=== PATIENT | male | born 1955 | race Caucasian/White ===

== ENCOUNTER → 2020-12-23 | Outpatient (CLI) | payer BC ==
[~2020-12-23] MED LIST: CO-ENZYME Q-1010 MG PO; ROSUVASTATIN CA10 MG PO; VITAMIN D325 MC5 PO
[2020-12-23 09:27] LABS: URINE BILIRUBIN NEGATIVE (Negative); URINE BLOOD NEGATIVE (Negative); URINE CLARITY CLEAR; URINE COLOR YELLOW; URINE GLUCOSE-RANDOM* NEGATIVE (Negative); URINE KETONES NEGATIVE (Negative); URINE LEUKOCYTES-REFLEX NEGATIVE (Negative); URINE NITRITE-REFLEX NEGATIVE (Negative); URINE PROTEIN (DIPSTICK) NEGATIVE (Negative); URINE SPECIFIC GRAVITY <= 1.005 (1.005-1.035); URINE UROBILINOGEN 0.2 E.U./dl (0.2-1.0)
[2020-12-23 09:36] LABS: HEMATOCRIT 36.5 % (42.0-52.0); HEMOGLOBIN 11.6 gm/dL (14.0-18.0); MCH 24.2 pg (26.0-34.0); MCHC 31.8 g/dL (28.0-37.0); MCV 75.9 fL (80.0-100.0); RBC 4.81 mil/uL (4.50-6.00); RDW 16.5 % (10.5-14.5)
[2020-12-23 09:43] LABS: CALCIUM 8.7 mg/dL (8.5-10.1); POTASSIUM 4.6 mmol/L (3.5-5.1)
--- NOTE | 2020-12-23 11:27 | EKG ---
[address] [address] ELECTROCARDIOGRAM REPORT Name: SVITLANA ALVARENGA Room #: MORRIS Friedman#: [id number] Admission: 12/23/20 Attend Phys: Terrell Denis MD Discharge: Date of : 55 Report #: [id number] 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
== END ==
LOC: PAC 08:43
PROVIDERS: ATTEND Orthopaedic Surgery
DX: Z01.818 Encounter for other preprocedural examination (principal); M16.11 Unilateral primary osteoarthritis, right hip

== ENCOUNTER 2020-12-30 06:42 | Observation (INO) | payer BC ==
[~2020-12-30] VITALS: Ht 170.2 cm; Wt 98.4 kg
[2020-12-30 08:13] VITALS: BP 156/72
[2020-12-30 15:50] VITALS: BP 137/75
--- NOTE | 2020-12-30 17:45 | NUR ---
PT ARRIVED TO FLOOR FROM RR IN STABLE CONDITION AT 1433. 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 NO NEW ORDER NOTED.PT C/O RT HIP PAIN RATED 4/10. NORCO 1 TAB GIVEN. PT IN BED EATING DINNER. WILL CONTINUE TO MONITOR.
[2020-12-30 20:03] VITALS: BP 136/69
--- NOTE | 2020-12-31 03:28 | NUR ---
ASSESSED AT START OF SHIFT. PT RESTING IN BED. IV INTACT AND FLUIDS INFUSING. PO PAIN MED GIVEN FOR RIGHT HIP PAIN. URINAL AT BEDSIDE AND PT VOIDS APPROPRAITELY. NO FURTHER SIGNS OF DISCOMOFORT. WILL CONT WITH POC TILL EOS. FERNANDO DRESSING, ICE PACK AND HEMOVAC IN PLACE.
[2020-12-31 05:53] LABS: ABSOLUTE NEUTROPHILS 6.8 thou/uL (1.4-8.2); BASOPHILS 0.1 % (0.0-2.0); HEMATOCRIT 28.6 % (42.0-52.0); HEMOGLOBIN 9.2 gm/dL (14.0-18.0); MCH 24.8 pg (26.0-34.0); MCV 77.5 fL (80.0-100.0); MONOCYTES 10.1 % (1.0-8.0); PLATELET COUNT 204 thou/uL (150-400); POLYS 74.8 % (36.0-66.0); RDW 16.9 % (10.5-14.5); WBC 9.1 thou/uL (4.0-11.0)
[2020-12-31 06:11] LABS: CALCIUM 7.7 mg/dL (8.5-10.1); MAGNESIUM 1.9 mg/dL (1.8-2.4); POTASSIUM 4.2 mmol/L (3.5-5.1)
--- NOTE | 2020-12-31 07:48 | O ---
[facility] [place] [address] OPERATIVE REPORT Name: SVITLANA ALVARENGA Room #: 436-P [facility] Elder#: [id number] Admission: 12/30/20 Attend Phys: Terrell Denis MD Discharge: Date of : 55 Report #: [id number] THIS REPORT FOR: cc: RIC FARLEY MD Physician not on staff Terrell Denis MD ~ DATE OF SERVICE: 12/30/2020 PREOPERATIVE DIAGNOSIS: End-stage degenerative arthritis, right hip. POSTOPERATIVE DIAGNOSIS: End-stage degenerative arthritis, right hip. PROCEDURE: Right total hip arthroplasty. SURGEON: Terrell Denis MD INDICATIONS: This healthy, active 65-year-old gentleman complains of progressive right hip pain. Clinical exam and x-rays confirm rather significant degenerative arthritis with significant spurring. He demonstrates slight flexion contracture and limited rotation with crepitus and pain. We discussed treatment options and elected to go ahead with total hip replacement. DESCRIPTION OF PROCEDURE: The patient was taken to the operating room where he was placed under general anesthesia. Prophylactic intravenous antibiotics were administered. He was turned to the left lateral decubitus position. The right hip, thigh and leg were meticulously prepped and draped. A slightly curving posterolateral skin incision was made. This was carried through fascia and gluteus to expose the posterior aspect of the hip joint. The short external rotators and caps were taken down and preserved and tagged with several #1 FiberWire sutures. The hip was dislocated posteriorly and marked. Degenerative change on the femoral head and acetabulum was noted. A femoral neck osteotomy was performed. The canal was prepared using reamers and hand broaches. The Quevedo and Nephew hip system was utilized. The hip seemed best suited for a size 14 Synergy stem. The trial stem was removed and attention directed to the acetabulum. The acetabulum was sequentially reamed, gradually advancing to a 56 mm reamer. A Quevedo and Nephew size 56, 3-hole StikTite acetabular shell was selected. This was impacted into his anatomic acetabulum, placing this in about 45 degrees off of vertical and about 20 degrees of anteversion. It seated nicely and appeared to be secure. In addition, three cancellous screws were placed through the apical 3 anchor holes. Each had good purchase and seemed to add stability. A 40 mm diameter polyethylene liner was then inserted placing the 20-degree elevated rim at about the 10 o'clock posterior position. This seated nicely and appeared to be secure. A trial reduction was then performed and the hip was best suited for a size 14 femoral stem with a high offset neck angle and a +4 mm neck length. This resulted in satisfactory alignment, range of motion, stability, and leg length. The trial stem was removed and the [facility] [address] [place] [address] OPERATIVE REPORT Name: SVITLANA ALVARENGA Room #: 436-P [facility] Anahy Friedman#: [id number] Admission: 12/30/20 Attend Phys: Terrell Denis MD Discharge: Date of : 55 Report #: [id number] permanent Quevedo and Nephew Synergy size 14 high offset femoral component was then impacted in place. Positioning this in about 20 degrees of anteversion. It seated nicely and appeared to be secure. A femoral head was then selected using the Oxinium 40 mm diameter with a +4 mm neck length sleeve. This was impacted on to the Mares taper. It seated nicely and appeared to be secure. The hip was reduced. Alignment, range of motion, stability and leg length were assessed and felt to be satisfactory. The wound was copiously irrigated. Good hemostasis was established. The capsule and short external rotators were repaired back to bone. A single Hemovac was left in the wound exiting through a separate stab incision. The fascia was then closed with multiple #1 Vicryl sutures. The subcutaneous tissues were closed with 0 Monocryl. The skin was closed with skin sharita. Sterile dressing was applied. The patient was awakened and returned to recovery room in good condition. <ELECTRONICALLY SIGNED> By: Terrell Denis MD 12/31/20 0748 1047 1111 Terrell Denis MD /sean
[2020-12-31 07:50] VITALS: BP 117/66
--- NOTE | 2020-12-31 09:15 | NUR ---
Chart review, Total Hip replacement. Don a & o x 4, pleasant. able to make his needs know. Therapy will see him today, will need fww. referral to provider plus, was ok per mal. He lives at home with his . from the garage there is 1/[address] into home with hand rails. Total of 14 steps up to bedrooms and down to the basement. No DME prior to. Independent prior to hospital. Manage his own medication, drives vehicle. 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 PCP Quentin Warren. No hh or rehab in the past. Has outpt therapy that he wants to do at [facility] alanna/Lorena # [phone]. will cont following as needed for dc needs. DCP: FWW, home [facility].
--- NOTE | 2020-12-31 16:11 | EKG ---
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
[2020-12-31 19:11] VITALS: BP 115/66
--- NOTE | 2021-01-01 02:02 | NUR ---
ASSESSED AT START OF SHIFT 1900. PT SITTING UP IN CHAIR. EVENING MEDS GIVEN AND PT RICHARD IT WELL. UP WITH ASSIST TO THE BED. URINAL BY BEDSIDE. HYDROCODONE GIVEN FOR PAIN. PER REPORT PT FELT DIZZY DURING THE DAY AND DIDN'T RICHARD THERAPY WELL. WILL CONT TO MONITOR.
[2021-01-01 04:07] VITALS: BP 132/71
[2021-01-01 06:46] LABS: MCH 24.9 pg (26.0-34.0); MCHC 32.1 g/dL (28.0-37.0); MCV 77.4 fL (80.0-100.0); RBC 3.62 mil/uL (4.50-6.00); RDW 16.9 % (10.5-14.5); WBC 7.3 thou/uL (4.0-11.0)
[2021-01-01 07:36] VITALS: BP 128/80
--- NOTE | 2021-01-01 10:31 | NUR ---
Assumed care of pt at 0700. Pt a&ox4. Pain controlled with prn pain medications. Dressing c/d/i. Pt worked with physical therapy this am. Will have another physical therapy session in the afternoon. Possible d/c to home later this afternoon. Call light within reach. Fall precautions in place. Will continue to monitor.
[2021-01-01 13:50] VITALS: BP 128/80
== END 2021-01-01 14:29 | disposition home or self-care (01) ==
LOC: OR → TBA 07:07 → OR 09:21 → 4S 14:36 → OR 15:19 → 4S 01-01 14:29
PROVIDERS: Nurse Practitioner; ADMIT Orthopaedic Surgery; ATTEND Orthopaedic Surgery
DX: M16.11 Unilateral primary osteoarthritis, right hip (principal); Z20.822 Contact with and (suspected) exposure to COVID-19; E78.5 Hyperlipidemia, unspecified; Z87.891 Personal history of nicotine dependence; Z79.899 Other long term (current) drug therapy; Z85.46 Personal history of malignant neoplasm of prostate
CPT/HCPCS: 50010; 50101; 50382; 50414; 51412; 53000; 53368; 56521; 56525; 56530; 57095; 57103; 62110; 62900; 70005